=== PATIENT | male | born 1945 | race Caucasian/White ===

== ENCOUNTER 2020-06-19 12:04 | Observation (INO) | payer MEDICARE ==
[2020-06-19 12:38] LABS: Basophils % (A) 0 %; Eosinophils # (A) 0.2 k/uL (0-0.7); Eosinophils % (A) 2 %; HCT 49.2 % (39.0-53.0); HGB 16.4 gm/dL (13.0-17.5); Lymphocytes # (A) 3.1 k/uL (1.0-4.8); Lymphocytes % (A) 32 %; MCH 30.6 pg (25.0-35.0); MCHC 33.4 g/dL (31.0-37.0); MCV 91.6 fL (80.0-100.0); Monocytes # (A) 0.4 k/uL (0-1.0); Monocytes % (A) 4 %; Neutrophils # (A) 5.7 k/uL (1.3-7.7); Neutrophils % (A) 60 %; Platelet Count 183 k/uL (150-450); RBC 5.37 m/uL (4.30-5.90); RDW 13.1 % (11.5-15.5); WBC 9.6 k/uL (3.8-10.6)
--- NOTE | 2020-06-19 12:46 | XR ---
EXAMINATION TYPE: XR chest 2V DATE OF EXAM: 06/19/2020 COMPARISON: NONE HISTORY: Chest pain. TECHNIQUE: Frontal and lateral views of the chest are obtained. FINDINGS: There is no focal air space opacity, pleural effusion, or pneumothorax seen. The cardiac silhouette size is within normal limits. The osseous structures are intact. IMPRESSION: No acute cardiopulmonary process.
[2020-06-19 12:47] LABS: Albumin 4.1 g/dL (3.5-5.0); Calcium 9.6 mg/dL (8.4-10.2); Potassium 4.5 mmol/L (3.5-5.1); Total Protein 7.1 g/dL (6.3-8.2)
[2020-06-19 12:52] LABS: D-Dimer 0.27 mg/L FEU (<0.60); Partial Thromboplastin Time 23.7 sec (22.0-30.0); Prothrombin Time 9.9 sec (9.0-12.0)
--- NOTE | 2020-06-19 13:50 | ED ---
Chest Pain HPI - General Chief Complaint: Chest Pain Stated Complaint: chest pain Time Seen by Provider: 06/19/20 12:18 Source: patient, RN notes reviewed Mode of arrival: wheelchair Limitations: no limitations - History of Present Illness Initial Comments: This is a 74-year-old male who presents with complaints of chest pain when after past couple days. Midsternal unrelenting he states it happened reason spicy food. He currently states she's feeling well at rest no cough fevers chills nausea vomiting or other symptoms. States it was moderate in severity. MD Complaint: chest pain - Related Data Allergies Allergy/AdvReac Type Severity Reaction Status Date / Time No Known Allergies Allergy Verified 06/19/20 14:46 Review of Systems ROS Statement: Those systems with pertinent positive or pertinent negative responses have been documented in the HPI. ROS Other: All systems not noted in ROS Statement are negative. EKG Findings - EKG Results: EKG: interpreted by LYNNE, sinus rhythm (Sinus rhythm a 63. We'll 144 QRS duration 92 QT since QTC 370/378 that exodeviation no acute ST-T wave changes) Past Medical History Past Medical History: Coronary Artery Disease (CAD), Hyperlipidemia, Hypertension History of Any Multi-Drug Resistant Organisms: None Reported Past Surgical History: Heart Catheterization With Stent Past Psychological History: No Psychological Hx Reported Smoking Status: Former smoker Past Alcohol Use History: None Reported Past Drug Use History: None Reported General Exam - General Exam Comments Initial Comments: This is a well-developed well-nourished awake alert oriented times 3 male Limitations: no limitations General appearance: alert, in no apparent distress Head exam: Present: atraumatic, normocephalic, normal inspection Eye exam: Present: normal appearance, PERRL, EOMI. Absent: scleral icterus, conjunctival injection, periorbital swelling ENT exam: Present: normal exam, mucous membranes moist Neck exam: Present: normal inspection, full ROM, other (No stridor JVD or bruits). Absent: tenderness, meningismus, lymphadenopathy Respiratory exam: Present: normal lung sounds bilaterally. Absent: respiratory distress, wheezes, rales, rhonchi, stridor Cardiovascular Exam: Present: regular rate, normal rhythm, normal heart sounds. Absent: systolic murmur, diastolic murmur, rubs, gallop, clicks GI/Abdominal exam: Present: soft, normal bowel sounds. Absent: distended, tenderness, guarding, rebound, rigid, bruit, pulsatile mass Extremities exam: Present: normal inspection, full ROM, normal capillary refill. Absent: tenderness, pedal edema, joint swelling, calf tenderness Back exam: Present: normal inspection Neurological exam: Present: alert, oriented X3, CN II-XII intact Psychiatric exam: Present: normal affect, normal mood Skin exam: Present: warm, dry, intact, normal color. Absent: rash Course Vital Signs 06/19/20 06/19/20 12:08 13:43 Temperature 98.1 F 97.9 F Pulse Rate 65 57 L Respiratory 16 14 Rate Blood Pressure 160/83 144/89 O2 Sat by Pulse 100 100 Oximetry Chest Pain MDM - MDM Imaging reviewed no acute findings patient's had no further chest pain however he does describe exertional chest pain suspicious for angina. Patient will be admitted case is discussed with the patient's family as well as with Dr. Garza Critical Care Time Critical Care Time: Yes Total Critical Care Time: 31 Critical Care Time: 31 minutes of critical care time which includes initial presentation with history physical labs x-rays multiple reevaluation the patient discussed with patient family regarding findings admission orders and documentation of the above Disposition Clinical Impression: Chest pain, Unstable angina pectoris Disposition: ADMITTED IP TO THIS HOSP Condition: Fair Is patient prescribed a controlled substance at d/c from ED?: No Referrals: Ericka Pedroza MD [Primary Care Provider] - 1-2 days
[2020-06-19] MEDS ORDERED: HEPARIN SODIUM,PORCINE 5,000 UNIT/ML 1 ML VIAL IV ONE (14:51)
[2020-06-19] MEDS ORDERED: NITROGLYCERIN SL TABS 0.4 MG TAB SUBLINGUAL PRN (14:51)
[2020-06-19] MEDS ORDERED: HEPARIN SOD,PORK IN 0.45% NACL 25,000 UNIT in 0.45% NACL 1 250ML.BAG IV SCH (15:00)
--- NOTE | 2020-06-19 16:16 | P.HPIM ---
History of Present Illness H&P Date: 06/19/20 Chief Complaint: chest pain Patient is a 74-year-old male for history of coronary artery disease, hypertension, and dyslipidemia who presented to the emergency department with complaints of chest pain. On arrival to the ER he was slightly hypertensive with a blood pressure 160/83. Laboratory analysis was essentially unremarkable. Initial troponin was negative at 0.012. Chest x-ray shows no acute process. EKG demonstrated normal sinus rhythm at a rate of 63 with some baseline wandering throughout but no significant ST-T wave changes. Patient has delayed R-wave progression. He was placed in observation for chest pain. Patient seen and examined at bedside. Chest pain X 2 days. He initially thought it was something he ate but when it didn't go away he became more worried. The pain initially was in both the chest and abdomen. Now pain feels like someone is squeezing his heart. Constant pain over the last 2 days. Has lessened since presenting to the emergency department and laying still. No change in the pain with exertion. He reports shortness of breath which sounds chronic, no n/v, no numbness or tingling, no significant lightheadness or dizziness, no palpitations. 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 Last stent 2017 No hx of MD No longer on Plavix Review of Systems Pertinent positives and negatives as discussed in HPI, a complete review of systems was performed and all other systems are negative. Past Medical History Past Medical History: Coronary Artery Disease (CAD), Hyperlipidemia, Hypertension History of Any Multi-Drug Resistant Organisms: None Reported Past Surgical History: Heart Catheterization With Stent Date of Last Stent Placement:: 2017 Past Psychological History: No Psychological Hx Reported Smoking Status: Former smoker Past Alcohol Use History: None Reported Past Drug Use History: None Reported Additional History: No cane or walker - Past Family History Mother Family Medical History: Myocardial Infarction (MD) Medications and Allergies Home Medications Medication Instructions Recorded Confirmed Type Aspirin [Adult Low Dose Aspirin EC] 81 mg PO DAILY 06/19/20 06/19/20 History Atorvastatin [Lipitor] 80 mg PO DAILY 06/19/20 06/19/20 History Metoprolol Succinate (ER) [Toprol 100 mg PO DAILY 06/19/20 06/19/20 History XL] Omeprazole [PriLOSEC] 20 mg PO DAILY 06/19/20 06/19/20 History Allergies Allergy/AdvReac Type Severity Reaction Status Date / Time JOSE Inhibitors Allergy Swelling Verified 06/19/20 16:01 Physical Exam Osteopathic Statement: *. No significant issues noted on an osteopathic structural exam other than those noted in the History and Physical/Consult. Vitals: Vital Signs Temp Pulse Resp BP Pulse Ox 06/19/20 13:43 97.9 F 57 L 14 144/89 100 06/19/20 12:08 98.1 F 65 16 160/83 100 Intake and Output 06/19/20 06/19/20 06/19/20 06:59 14:59 22:59 Other: Weight 65.771 kg 65.771 kg General: non toxic, no distress, appears at stated age Derm: warm, dry Head: atraumatic, normocephalic, symmetric Eyes: EOMI, no lid lag, anicteric sclera, pupils equal round reactive to light ENT: Nose and ears atraumatic, no thrush, no pharyngeal erythema Neck: No thyromegaly, no cervical lymphadenopathy, trachea midline, supple Mouth: no lip lesion, mucus membranes moist Cardiovascular: S1S2 reg, no murmur, positive posterior tibial pulse bilateral, no edema, capillary refill less than 2 seconds, no reproducible chest pain Lungs: clear to ascultation bilateral, no ronchi, no rales, no wheeze, no accessory muscle use Abdominal: soft, nontender to palpation, no guarding, no appreciable organomegaly, normal bowel sounds Ext: no gross muscle atrophy, muscle strength muscle strength 5 out of 5 in all 4 extremities, no contractures Neuro: CN II-XI grossly intact, light touch intact all 4 extremities, finger to nose within normal limits, Psych: Alert, oriented, appropriate affect Results CBC & Chem 7: 06/19/20 12:31 06/19/20 12:31 Labs: Abnormal Lab Results - Last 24 Hours (Table) 06/19/20 Range/Units 12:31 Chloride 108 H (98-107) mmol/L Glucose 110 H (74-99) mg/dL Chest x-ray: report reviewed Thrombosis Risk Factor Assmnt - DVT/VTE Prophylaxis DVT/VTE Prophylaxis: Low risk, early ambulation encouraged - Choose All That Apply Any of the Below Risk Factors Present?: No Other Risk Factors: Yes Each Risk Factor Represents 2 Points: Age 61-74 years Thrombosis Risk Factor Assessment Total Risk Factor Score: 2 Thrombosis Risk Factor Assessment Level: Low Risk Assessment and Plan Assessment: Chest pain with history of coronary artery disease - heparing gtt, BB, and ASA for unstbale angina - trend troponin - cardio consult - EKG if recurrent chest pain HTN - metoprolol - follow BP HLD - check lipid profile - statin The patient is placed in observation with an anticipated less than 2 midnight stay for evaluation of []. Surrogate decision-maker: DVT prophylaxis: on heparin gtt Anticipated discharge date: in AM Anticipated discharge place: home A total of 35 minutes was spent on the care of this complex patient more than 50% of the time was spent in counseling and care coordination.
[2020-06-20 05:23] LABS: HCT 41.7 % (39.0-53.0); HGB 14.1 gm/dL (13.0-17.5); MCH 32.1 pg (25.0-35.0); MCHC 33.9 g/dL (31.0-37.0); MCV 94.7 fL (80.0-100.0); Mean Platelet Volume 7.4; Platelet Count 152 k/uL (150-450); RDW 12.7 % (11.5-15.5); WBC 8.3 k/uL (3.8-10.6)
[2020-06-20 05:35] LABS: Cholesterol 80 mg/dL (<200); HDL Cholesterol 36 mg/dL (40-60); LDL Cholesterol,Calculated 31 mg/dL (0-99); Triglycerides 64 mg/dL (<150)
[2020-06-20] MEDS ORDERED: PANTOPRAZOLE 40 MG TABLET PO SCH (07:30)
[2020-06-20 08:12] VITALS: BP 146/84; PULSE 64; RESP 16; TEMP 97.7
[2020-06-20] MEDS ORDERED: ASPIRIN 81 MG PO SCH (09:00)
[2020-06-20] MEDS ORDERED: NON FORMULARY DRUG (Aspirin [Adult Low Dose Aspirin Ec] 81 MG Tablet.Dr) PO SCH (09:00)
[2020-06-20] MEDS ORDERED: ATORVASTATIN 80 MG TAB PO SCH (09:00)
[2020-06-20] MEDS ORDERED: METOPROLOL SUCCINATE (ER) 100 MG TAB.ER.24H PO SCH (09:00)
[2020-06-20] MEDS ORDERED: ASPIRIN 325 MG TAB PO SCH (09:00)
--- NOTE | 2020-06-20 09:57 | P.CRDCN ---
History of Present Illness Consult date: 06/20/20 Consult reason: chest pain Chief complaint: Chest pain History of present illness: This is a pleasant 74-year-old gentleman with documented history of coronary artery disease. He states he underwent angioplasty with 2 stent placements approximately 3 years ago. This was performed by Dr. 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 He also has a history of hypertension, hyperlipidemia. He presents to the hospital on this admission with symptoms of abdominal discomfort that seemed to radiate up into the lungs and chest area. Symptoms started Saturday after the patient states he ate some spicy sausage. Since Saturday the symptoms have been somewhat constant, although have waxed and waned a little bit. The discomfort in the chest that he is experiencing he states only comes on when he takes a deep breath. Patient's home medications included Prilosec, metoprolol 100 mg daily, Lipitor 80 mg daily and a baby aspirin daily. His chest x-ray on presentation here did not show any acute process. Initial EKG shows normal sinus rhythm with nonspecific ST-T wave changes, subsequent EKG shows normal sinus rhythm with lateral T-wave inversion. Blood pressure 126/70 with a heart rate in the 60s respirations 18 afebrile, 98% on room air. White blood cell count 8.3, hemoglobin 14.1, platelet count 152. D-dimer 0.27 sodium 142, potassium 4.5, BUN 18, creatinine 1.0. Magnesium 2.0 troponins 0.0123 cholesterol ADA triglycerides 64 LDL 31 and HDL 36. At the time of my examination this morning, the patient is currently chest pain- free unless he takes a deep breath, then he is able to bring on the chest discomfort. Past Medical History Past Medical History: Coronary Artery Disease (CAD), Hyperlipidemia, Hypertension History of Any Multi-Drug Resistant Organisms: None Reported Past Surgical History: Heart Catheterization With Stent Date of Last Stent Placement:: 2017 Past Psychological History: No Psychological Hx Reported Smoking Status: Former smoker Past Alcohol Use History: None Reported Past Drug Use History: None Reported - Past Family History Mother Family Medical History: Myocardial Infarction (MO) Medications and Allergies Home Medications Medication Instructions Recorded Confirmed Type Aspirin [Adult Low Dose Aspirin EC] 81 mg PO DAILY 06/19/20 06/19/20 History Atorvastatin [Lipitor] 80 mg PO DAILY 06/19/20 06/19/20 History Metoprolol Succinate (ER) [Toprol 100 mg PO DAILY 06/19/20 06/19/20 History XL] Omeprazole [PriLOSEC] 20 mg PO DAILY 06/19/20 06/19/20 History Allergies Allergy/AdvReac Type Severity Reaction Status Date / Time JOSE Inhibitors Allergy Swelling Verified 06/19/20 16:01 Physical Exam Vitals: Vital Signs Temp Pulse Pulse Resp BP BP Pulse Ox 06/20/20 08:11 97.7 F 64 16 146/84 98 06/20/20 03:45 97.6 F 60 18 126/70 98 06/20/20 03:00 60 18 06/19/20 20:18 75 18 06/19/20 20:13 98.0 F 75 18 165/82 96 06/19/20 16:55 57 L 145/80 06/19/20 15:58 98.1 F 70 20 177/64 96 06/19/20 15:37 99 06/19/20 13:43 97.9 F 57 L 14 144/89 100 06/19/20 12:08 98.1 F 65 16 160/83 100 Intake and Output 06/19/20 06/20/20 06/20/20 22:59 06:59 14:59 Intake Total 56.83 Balance 56.83 Intake: Intake, IV Titration 56.83 Amount Heparin Sod,Pork in 0.45% 56.83 NaCl 25,000 unit In 0.45 % NaCl 1 250ml.bag @ 12 UNITS/KG/HR 7.893 mls/hr IV .Q24H [facility] Rx#: [id number] Other: Voiding Method Toilet Toilet Toilet # Voids 2 1 # Bowel Movements 1 Weight 65.771 kg PHYSICAL EXAMINATION: GENERAL: 74-year-old gentleman in no acute distress at the time of my examination HEENT: Head is atraumatic, normocephalic. Pupils equal, round. Sclera anicteric. Conjunctiva are clear. Mucous membranes of the mouth are moist. Neck is supple. There is no elevated jugular venous pressure. No carotid bruit is heard. HEART EXAMINATION: Heart S1, S2 normal. No murmur or gallop heard. CHEST EXAMINATION: Lungs are clear to auscultation and precussion. No chest wall tenderness is noted on palpation or with deep breathing. ABDOMEN: Soft, nontender. Bowel sounds are heard. No organomegaly noted. EXTREMITIES: 2+ peripheral pulses with no evidence of peripheral edema and no calf tenderness noted. NEUROLOGIC patient is awake, alert and oriented 3 . Results 06/20/20 04:44 06/19/20 12:31 Cardiac Enzymes 06/19/20 06/19/20 06/19/20 Range/Units 12:31 12:31 15:44 AST 29 (17-59) U/L Troponin I <0.012 <0.012 (0.000-0.034) ng/mL 06/19/20 Range/Units 18:21 AST (17-59) U/L Troponin I <0.012 (0.000-0.034) ng/mL Coagulation 06/19/20 06/19/20 06/20/20 Range/Units 12:31 20:40 04:44 PT 9.9 (9.0-12.0) sec APTT 23.7 86.4 H 56.0 H (22.0-30.0) sec Lipids 06/20/20 Range/Units 04:44 Triglycerides 64 (<150) mg/dL Cholesterol 80 (<200) mg/dL HDL Cholesterol 36 L (40-60) mg/dL CBC 06/19/20 06/20/20 Range/Units 12:31 04:44 WBC 9.6 8.3 (3.8-10.6) k/uL RBC 5.37 4.40 (4.30-5.90) m/uL Hgb 16.4 14.1 (13.0-17.5) gm/dL Hct 49.2 41.7 (39.0-53.0) % Plt Count 183 152 (150-450) k/uL Comprehensive Metabolic Panel 06/19/20 Range/Units 12:31 Sodium 142 (137-145) mmol/L Potassium 4.5 (3.5-5.1) mmol/L Chloride 108 H (98-107) mmol/L Carbon Dioxide 27 (22-30) mmol/L BUN 18 (9-20) mg/dL Creatinine 1.07 (0.66-1.25) mg/dL Glucose 110 H (74-99) mg/dL Calcium 9.6 (8.4-10.2) mg/dL AST 29 (17-59) U/L ALT 28 (4-49) U/L Alkaline Phosphatase 117 (38-126) U/L Total Protein 7.1 (6.3-8.2) g/dL Albumin 4.1 (3.5-5.0) g/dL Current Medications Generic Name Dose Route Start Last Admin Trade Name Freq PRN Reason Stop Dose Admin Aspirin 81 mg 06/20/20 09:00 06/20/20 09:06 Aspirin 81 Mg PO 81 mg DAILY BERNADETTE Administration Atorvastatin Calcium 80 mg 06/20/20 09:00 06/20/20 09:05 Atorvastatin 80 Mg Tab PO 80 mg DAILY BERNADETTE Administration Metoprolol Succinate 100 mg 06/20/20 09:00 Metoprolol Succinate (Er) 100 Mg Tab.Er.24h PO DAILY [facility] Nitroglycerin 0.4 mg 06/19/20 14:51 Nitroglycerin Sl Tabs 0.4 Mg Tab SUBLINGUAL Q5M PRN Chest Pain Pantoprazole Sodium 40 mg 06/20/20 07:30 06/20/20 06:31 Pantoprazole 40 Mg Tablet PO 40 mg [id number] [facility] Administration Intake and Output 06/19/20 06/20/20 06/20/20 22:59 06:59 14:59 Intake Total 56.83 Balance 56.83 Intake: Intake, IV Titration 56.83 Amount Heparin Sod,Pork in 0.45% 56.83 NaCl 25,000 unit In 0.45 % NaCl 1 250ml.bag @ 12 UNITS/KG/HR 7.893 mls/hr IV .Q24H [facility] Rx#: [id number] Other: Voiding Method Toilet Toilet Toilet # Voids 2 1 # Bowel Movements 1 Weight 65.771 kg 06/20/20 04:44 06/19/20 12:31 EKG Interpretations (text) EKG shows normal sinus rhythm with nonspecific ST-T wave changes Assessment and Plan Plan: Assessment and plan #1 chest pain, atypical for acute coronary syndrome. Troponins negative 3. EKG shows a normal sinus rhythm with nonspecific ST-T wave change #2 history of coronary artery disease with prior angioplasty and stent 2, 3 years ago #3 hypertension #4 hyperlipidemia Plan We will decrease the aspirin 81 mg daily, discontinue IV heparin. We will obtain an echocardiogram with Doppler study. We will also schedule the patient undergo stress Cardiolite today. Based on the findings of these tests further recommendations will be made. DNP note has been reviewed, I agree with a documented findings and plan of care. Patient was seen and examined.
--- NOTE | 2020-06-20 11:48 | EST ---
EXERCISE STRESS AGE: 74 SEX: M HT: 67 WT: 145 PROTOCOL: Cardiolite Alec Stress Test STAGE: 2 DURATION OF EXERCISE: 5:00 HEART RATE REST: 103 BLOOD PRESSURE REST: 139/78 MAXIMUM HEART RATE ACHIEVED: 144 MAXIMUM BLOOD PRESSURE: 194/69 85% MPHR: 122 100% MPHR: 144 METS: 7.0 INDICATIONS: Chest pain. CLINICAL INFORMATION: Baseline rhythm is sinus mechanism, rate of 103, left axis deviation, poor R-wave progression. Baseline blood pressure 139/78 mmHg. Patient exercised on Alec protocol for 5 minutes reaching peak rate of 144 beats per minute which is equal to 100% maximum predicted heart rate. Peak blood pressure 194/69 mmHg. Test was terminated due to fatigue. There was no chest pain. Electrocardiograph monitoring revealed 0.5 mm of steep upsloping ST-segment depression that improved in recovery. Cardiolite was injected at peak exercise. CONCLUSION: 1. Average exercise tolerance with borderline positive electrocardiograph stress testing. 2. Nuclear images will be reported separately. MMODL / IJN: [id number] /
--- NOTE | 2020-06-20 11:57 | NM ---
EXAMINATION TYPE: NM stress cardiolite complete DATE OF EXAM: 06/20/2020 COMPARISON: NONE HISTORY: Chest pain TECHNIQUE: After the intravenous administration of 9.87 mCi Tc 99m Sestamibi - Rest images obtained 45 minutes post injection. The patient exercised using a ZAC protocol and 1 minute prior to peak exercise was injected with 26.6 mCi Tc 99m Sestamibi - Stress images obtained 10 minutes post injecti on. FINDINGS: Targeted heart rate was achieved during performance of the study. Review of stress and rest SPECT christa ges demonstrates perfusion defect on both stress and rest images of the inferior wall. No distinct re versible perfusion abnormality. Gated analysis shows normal wall motion with an estimated left ventr icular ejection fraction of 72 %. TID 0.67 IMPRESSION: 1. No scintigraphic evidence for reversible ischemia. 2. Attenuation artifact of the inferior wall. 3. Ejection fraction 72%.
--- NOTE | 2020-06-20 17:35 | P.DS ---
Providers Date of admission: 06/19/20 14:51 Expected date of discharge: 06/20/20 Attending physician: Gracie Orozco DO Consults: 06/19/20 14:51 Consult Physician Urgent Consulting Provider: Nikita Baron Consult Reason/Comments: Chest pain Do you want consulting provider notified?: Yes Primary care physician: Ericka Pedroza Hospital Course: Discharge Diagnosis: Noncardiac chest pain, probable costochondritis Hx of CAD Hypertension Dyslipidemia Hospital Course: Patient is a 74-year-old male for history of coronary artery disease, hypertension, and dyslipidemia who presented to the emergency department with complaints of chest pain. On arrival to the ER he was slightly hypertensive with a blood pressure 160/83. Laboratory analysis was essentially unremarkable. Initial troponin was negative at 0.012. Chest x-ray shows no acute process. EKG demonstrated normal sinus rhythm at a rate of 63 with some baseline wandering throughout but no significant ST-T wave changes. Patient has delayed R-wave progression. He was placed in observation for chest pain. He was seen by cardiology. His troponins remained negative. He underwent an Cardiolite stress test which not any evidence of reversible ischemia and did demonstrate a preserved ejection fraction. He is determined stable for discharge home. It was felt that his chest pain was likely secondary to costochondritis as he had recently weaned with a large portion of his lawn. He will follow-up with his primary care physician Dr. 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 Patient seen and examined at bedside. Chest pain resolved, no dyspnea, no nausea, vomiting. Vital signs reviewed and stable. General: non toxic, no distress, appears at stated age Derm: warm, dry Head: atraumatic, normocephalic, symmetric Eyes: EOMI, no lid lag, anicteric sclera Mouth: no lip lesion, mucus membranes moist Cardiovascular: S1S2 reg, no murmur, positive posterior tibial pulse bilateral, Lungs: CTA bilateral, no rhonchi, no rales , no accessory muscle use Abdominal: soft, nontender to palpation, no guarding, no appreciable organomegaly Ext: no gross muscle atrophy, no edema, no contractures Neuro: CN II-XI grossly intact, no focal neuro deficits Psych: Alert, oriented, appropriate affect A total of 25 minutes of time were spent preparing this complex discharge summary . Patient Condition at Discharge: Stable Plan - Discharge Summary Discharge Rx Participant: No New Discharge Prescriptions: Continue Omeprazole [PriLOSEC] 20 mg PO DAILY Metoprolol Succinate (ER) [Toprol XL] 100 mg PO DAILY Atorvastatin [Lipitor] 80 mg PO DAILY Aspirin [Adult Low Dose Aspirin EC] 81 mg PO DAILY Discharge Medication List Aspirin [Adult Low Dose Aspirin EC] 81 mg PO DAILY 06/19/20 [History] Atorvastatin [Lipitor] 80 mg PO DAILY 06/19/20 [History] Metoprolol Succinate (ER) [Toprol XL] 100 mg PO DAILY 06/19/20 [History] Omeprazole [PriLOSEC] 20 mg PO DAILY 06/19/20 [History] Follow up Appointment(s)/Referral(s): Mable Pisnao MD [REFERRING] - 06/28/20 1:00 pm Ericka Pedroza MD [Primary Care Provider] - 06/27/20 1:20 pm (Please arrive at 1:00 pm. ) Patient Instructions/Handouts: Chest Pain (DC) Activity/Diet/Wound Care/Special Instructions: Activity: as tolerated Diet: Heart Healthy Special Instructions: Keep all follow-up appointments Return with recurrent severe chest pain Discharge Disposition: HOME SELF-CARE
--- NOTE | 2020-06-21 09:56 | ECHOF ---
Referral Reason:chest pain MEASUREMENTS -------- HEIGHT: 170.2 cm WEIGHT: 65.8 kg BP: 146/84 RVIDd: 2.8 cm (< 3.3) IVSd: 1.2 cm (0.6 - 1.1) LVIDd: 3.6 cm (3.9 - 5.3) LVPWd: 1.1 cm (0.6 - 1.1) IVSs: 1.4 cm LVIDs: 2.3 cm LVPWs: 1.4 cm LA Diam: 2.7 cm (2.7 - 3.8) LAESV Index (A-L): 16.14 ml/m Ao Diam: 3.0 cm (2.0 - 3.7) AV Cusp: 1.9 cm (1.5 - 2.6) MV EXCURSION: 12.495 mm (> 18.000) MV EF SLOPE: 46 mm/s (70 - 150) EPSS: 0.5 cm MV E Tunde: 0.67 m/s MV DecT: 240 ms MV A Tunde: 1.00 m/s MV E/A Ratio: 0.67 AR PHT: 600 ms RAP: 5.00 mmHg RVSP: 17.74 mmHg FINDINGS -------- Sinus rhythm. This was a technically adequate study. The left ventricular size is normal. There is borderline concentric left ventricular hypertrophy. Overall left ventricular systolic function is normal with, an EF between 55 - 60 %. The right ventricle is normal in size. Normal LA size by volume 22+/-6 ml/m2. The right atrial size is normal. Interatrial and interventricular septum intact. There is mild aortic valve sclerosis. There is mild aortic regurgitation. Mild mitral annular calcification present. Mild mitral regurgitation is present. The tricuspid valve appears structurally normal. Mild tricuspid regurgitation present. Right vent ricular systolic pressure is normal at < 35 mmHg. Trace/mild (physiologic) pulmonic regurgitation. The aortic root size is normal. Normal inferior vena cava with normal inspiratory collapse consistent with estimated right atrial pre ssure of 5 mmHg. There is no pericardial effusion. CONCLUSIONS -------- 1. There is borderline concentric left ventricular hypertrophy. 2. Overall left ventricular systolic function is normal with, an EF between 55 - 60 %. 3. Normal LA size by volume 22+/-6 ml/m2. 4. There is mild aortic valve sclerosis. 5. There is mild aortic regurgitation. 6. Mild mitral regurgitation is present. 7. Mild tricuspid regurgitation present. 8. Trace/mild (physiologic) pulmonic regurgitation. 9. There is no pericardial effusion. [employer]PER [employer]OTATION OPERATOR: Carolyn Rubi RDCS
== END 2020-06-20 14:15 | disposition home or self-care (01) ==
LOC: EC 12:04 → 3NCARDOBS 14:51
PROVIDERS: ADMIT Internal Medicine; ATTEND Internal Medicine
DX: R07.89 Other chest pain (principal); R06.02 Shortness of breath; I25.10 Atherosclerotic heart disease of native coronary artery without angina pectoris; E78.5 Hyperlipidemia, unspecified; I10 Essential (primary) hypertension; Z87.891 Personal history of nicotine dependence; Z95.5 Presence of coronary angioplasty implant and graft; Z79.82 Long term (current) use of aspirin; Z88.8 Allergy status to other drugs, medicaments and biological substances; Z79.899 Other long term (current) drug therapy; Z82.49 Family history of ischemic heart disease and other diseases of the circulatory system
CPT/HCPCS: 93005 ×2; 96365; 96366; 96376; 99291; 36415; 93017; 93306; 85379; 83880; 80061; 80053; 82550; 83690; 83735; 84484; 85025; 85027; 85610; 85730 ×2; 71046; 78452; G0378 ×2; A9500; J1644 ×2

== ENCOUNTER 2024-12-18 08:06 | Observation (INO) | payer MEDICARE ==
--- NOTE | 2024-12-18 08:26 | ED ---
General Adult HPI - General Chief complaint: Chest Pain Stated complaint: chest pain Time Seen by Provider: 12/18/24 08:14 Source: patient, RN notes reviewed, old records reviewed Mode of arrival: ambulatory Limitations: no limitations - History of Present Illness Initial comments: 79-year-old male presenting with chest pain which began this morning. Patient has prior history of CAD status post stenting several years prior. No vomiting or diaphoresis. Does report moderate dyspnea associated with pain. Pain is a squeezing sensation but is also worse with deep inspiration. No fever. No lower extremity pain or swelling. - Related Data Home Medications Medication Instructions Recorded Confirmed Aspirin [Adult Low Dose Aspirin EC] 81 mg PO DAILY 06/19/20 12/18/24 Atorvastatin [Lipitor] 80 mg PO DAILY 06/19/20 12/18/24 Metoprolol Succinate (ER) [Toprol 100 mg PO DAILY 06/19/20 12/18/24 XL] Omeprazole 20 mg PO DAILY 12/18/24 12/18/24 Allergies Allergy/AdvReac Type Severity Reaction Status Date / Time JOSE Inhibitors Allergy Swelling Verified 12/18/24 10:22 face & hands & Anaphylaxis Review of Systems ROS Statement: Those systems with pertinent positive or pertinent negative responses have been documented in the HPI. ROS Other: All systems not noted in ROS Statement are negative. Past Medical History Past Medical History: Coronary Artery Disease (CAD), Hyperlipidemia, Hypertension History of Any Multi-Drug Resistant Organisms: None Reported Past Surgical History: Heart Catheterization With Stent Date of Last Stent Placement:: 2017 Past Psychological History: No Psychological Hx Reported Smoking Status: Former smoker Past Alcohol Use History: None Reported Past Drug Use History: None Reported - Past Family History Mother Family Medical History: Myocardial Infarction ([place]) General Exam Limitations: no limitations General appearance: alert, in no apparent distress Head exam: Present: atraumatic, normocephalic Eye exam: Present: normal appearance, PERRL ENT exam: Present: normal exam Neck exam: Present: normal inspection. Absent: tenderness, meningismus Respiratory exam: Present: normal lung sounds bilaterally. Absent: respiratory distress, wheezes Cardiovascular Exam: Present: regular rate, normal rhythm GI/Abdominal exam: Present: soft. Absent: distended, tenderness Extremities exam: Present: normal inspection, normal capillary refill. Absent: pedal edema, calf tenderness Neurological exam: Present: alert, oriented X3, CN II-XII intact. Absent: motor sensory deficit Psychiatric exam: Present: normal affect, normal mood Skin exam: Present: warm, dry, intact Course Vital Signs 12/18/24 12/18/24 08:07 09:36 Temperature 97.7 F Pulse Rate 107 H 74 Respiratory 18 16 Rate Blood Pressure 169/97 166/100 O2 Sat by Pulse 95 98 Oximetry Medical Decision Making - Medical Decision Making Was pt. sent in by a medical professional or institution (, [facility], [facility], urgent care, hospital, or [facility]...) When possible be specific @ -No Did you speak to anyone other than the patient for history (EMS, parent, family, police, friend...)? What history was obtained from this source @ -No Did you review nursing and triage notes (agree or disagree)? Why? @ -I reviewed and agree with nursing and triage notes Were old charts reviewed (outside hosp., previous admission, EMS record, old EKG, old radiological studies, urgent care reports/EKG's, [facility] records)? Report findings @ -No old charts were reviewed Differential Diagnosis (chest pain, altered mental status, abdominal pain women, abdominal pain men, vaginal bleeding, weakness, fever, dyspnea, syncope, headache, dizziness, GI bleed, back pain, seizure, CVA, palpatations, mental health, musculoskeletal)? @ -Not applicable EKG interpreted by me (3pts min.). @ -Sinus rhythm left axis rate of 97, MS interval 149, QRS duration 88, QTc [address] segment elevation. X-rays interpreted by me (1pt min.). @ Chest x-ray negative for acute cardiopulmonary disease CT interpreted by me (1pt min.). @ -None done U/S interpreted by me (1pt. min.). @ -None done What testing was considered but not performed or refused? (CT, X-rays, U/S, labs)? Why? @ -None What meds were considered but not given or refused? Why? @ -None Did you discuss the management of the patient with other professionals (professionals i.e. [facility], [facility], lab, RT, psych nurse, director social service, financial project manager, teacher, executive vice president and chief financial officer, caseworker intake)? Give summary @ -No Was smoking cessation discussed for >3mins.? @ -No Was critical care preformed (if so, how long)? @ -No Were there social determinants of health that impacted care today? How? (Homelessness, low income, unemployed, alcoholism, drug addiction, transportation, low edu. Level, literacy, decrease access to med. care, custodial, rehab)? @ -No Was there de-escalation of care discussed even if they declined (Discuss DNR or withdrawal of care, Hospice)? DNR status @ -No What co-morbidities impacted this encounter? (DM, HTN, Smoking, COPD, CAD, Cancer, CVA, ARF, Chemo, Hep., AIDS, mental health diagnosis, sleep apnea, morbid obesity)? @ -CAD status post stenting Was patient admitted / discharged? Hospital course, mention meds given and route, prescriptions, significant lab abnormalities, going to OR and other pertinent info. @ -[79 yo presenting with substernal chest pain. Pain is a squeezing sensation, worse with deep inspiration. Vital signs are stable. EKG sinus rhythm without ST segment elevation. Chest x-ray clear. Normal CBC, normal CMP. Negative initial troponin, negative D-dimer for pulmonary embolism. Given the onset of symptoms and the patient's risk factors he will be observed for serial cardiac enzymes, telemetry, cardiology consultation. Case discussed with Lillian kwon for [facility] Undiagnosed new problem with uncertain prognosis? @ -No Drug Therapy requiring intensive monitoring for toxicity (Heparin, Nitro, Insulin, Cardizem)? @ -No Were any procedures done? @ -No Diagnosis/symptom? @Chest pain rule out Acute, or Chronic, or Acute on Chronic? @Acute Uncomplicated (without systemic symptoms) or Complicated (systemic symptoms)? @ -Default Side effects of treatment? @ -No Exacerbation, Progression, or Severe Exacerbation? @ -No Poses a threat to life or bodily function? How? (Chest pain, [place], [place], pneumonia, PE, COPD, DKA, ARF, appy, cholecystitis, CVA, Diverticulitis, Homicidal, Suicidal, threat to staff... and all critical care pts) @ -Yes, ACS - Lab Data Result diagrams: 12/18/24 08:21 12/18/24 08:21 Lab Results 12/18/24 12/18/24 12/18/24 Range/Units 08:21 08:21 08:21 WBC 8.67 (4.50-10.00) 10*3/uL RBC 4.88 (4.40-5.60) 10*6/uL Hgb 14.8 (13.0-17.0) g/dL Hct 43.8 (39.6-50.0) % MCV 89.8 (80.0-97.0) fL MCH 30.3 (27.0-32.0) pg MCHC 33.8 (32.0-37.0) g/dL Plt Count 186 (140-440) 10*3/uL MPV 9.1 L (9.5-12.2) fL Immature Gran % (Auto) 0.2 % Neutrophils % 56.4 % Lymphocytes % 32.9 % Monocytes % 7.7 % Eosinophils % 2.5 % Basophils % 0.3 % Immature Gran # 0.02 (0.00-0.04) 10*3/uL Neutrophils # 4.88 (1.80-7.70) 10*3/uL Lymphocytes # 2.85 (0.90-5.00) 10*3/uL Monocytes # 0.67 (0.20-1.00) 10*3/uL Eosinophils # 0.22 (0.04-0.35) 10*3/uL Basophils # 0.03 (0.00-0.10) 10*3/uL PT 10.9 (10.0-12.5) sec INR 1.0 (<1.2) APTT 23.7 (22.0-30.0) sec D-Dimer 0.37 (<0.60) mg/L FEU Sodium 138 (137-145) mmol/L Potassium 3.8 (3.5-5.1) mmol/L Chloride 102 (98-107) mmol/L Carbon Dioxide 28 (22-30) mmol/L Anion Gap 8 mmol/L BUN 9 (9-20) mg/dL Creatinine 0.94 (0.66-1.25) mg/dL Est GFR (CKD-EPI)AfAm 88 (>60 ml/min/1.73 sqM) Est GFR (CKD-EPI)NonAf 76 (>60 ml/min/1.73 sqM) Glucose 117 H (74-99) mg/dL Calcium 9.7 (8.4-10.2) mg/dL Magnesium 1.6 (1.6-2.3) mg/dL Total Bilirubin 1.1 (0.2-1.3) mg/dL AST 25 (17-59) U/L ALT 20 (4-49) U/L Alkaline Phosphatase 134 H (38-126) U/L Troponin I (0.000-0.034) ng/mL NT-Pro-B Natriuret Pep 157 pg/mL Total Protein 7.1 (6.3-8.2) g/dL Albumin 4.2 (3.5-5.0) g/dL 12/18/24 Range/Units 08:21 WBC (4.50-10.00) 10*3/uL RBC (4.40-5.60) 10*6/uL Hgb (13.0-17.0) g/dL Hct (39.6-50.0) % MCV (80.0-97.0) fL MCH (27.0-32.0) pg MCHC (32.0-37.0) g/dL Plt Count (140-440) 10*3/uL MPV (9.5-12.2) fL Immature Gran % (Auto) % Neutrophils % % Lymphocytes % % Monocytes % % Eosinophils % % Basophils % % Immature Gran # (0.00-0.04) 10*3/uL Neutrophils # (1.80-7.70) 10*3/uL Lymphocytes # (0.90-5.00) 10*3/uL Monocytes # (0.20-1.00) 10*3/uL Eosinophils # (0.04-0.35) 10*3/uL Basophils # (0.00-0.10) 10*3/uL PT (10.0-12.5) sec INR (<1.2) APTT (22.0-30.0) sec D-Dimer (<0.60) mg/L FEU Sodium (137-145) mmol/L Potassium (3.5-5.1) mmol/L Chloride (98-107) mmol/L Carbon Dioxide (22-30) mmol/L Anion Gap mmol/L BUN (9-20) mg/dL Creatinine (0.66-1.25) mg/dL Est GFR (CKD-EPI)AfAm (>60 ml/min/1.73 sqM) Est GFR (CKD-EPI)NonAf (>60 ml/min/1.73 sqM) Glucose (74-99) mg/dL Calcium (8.4-10.2) mg/dL Magnesium (1.6-2.3) mg/dL Total Bilirubin (0.2-1.3) mg/dL AST (17-59) U/L ALT (4-49) U/L Alkaline Phosphatase (38-126) U/L Troponin I <0.012 (0.000-0.034) ng/mL NT-Pro-B Natriuret Pep pg/mL Total Protein (6.3-8.2) g/dL Albumin (3.5-5.0) g/dL Disposition Clinical Impression: Chest pain Disposition: ADMITTED IP TO THIS HOSP Condition: Stable Is patient prescribed a controlled substance at d/c from ED?: No Referrals: Juan R Lambert MD [Primary Care Provider] - 1-2 days Time of Disposition: 10:30
[2024-12-18 08:45] LABS: Basophils # (A) 0.03 10*3/uL (0.00-0.10); Basophils % (A) 0.3 %; Eosinophils # (A) 0.22 10*3/uL (0.04-0.35); Eosinophils % (A) 2.5 %; HCT 43.8 % (39.6-50.0); HGB 14.8 g/dL (13.0-17.0); Lymphocytes # (A) 2.85 10*3/uL (0.90-5.00); Lymphocytes % (A) 32.9 %; MCH 30.3 pg (27.0-32.0); MCHC 33.8 g/dL (32.0-37.0); MCV 89.8 fL (80.0-97.0); Mean Platelet Volume 9.1 fL (9.5-12.2); Monocytes # (A) 0.67 10*3/uL (0.20-1.00); Monocytes % (A) 7.7 %; Neutrophils # (A) 4.88 10*3/uL (1.80-7.70); Neutrophils % (A) 56.4 %; Platelet Count 186 10*3/uL (140-440); RBC 4.88 10*6/uL (4.40-5.60); RDW 13.1 % (11.5-14.5); WBC 8.67 10*3/uL (4.50-10.00)
--- NOTE | 2024-12-18 08:53 | XR ---
EXAMINATION TYPE: XR chest 2V DATE OF EXAM: 12/18/2024 8:37 AM COMPARISON: 06/19/2020 CLINICAL INDICATION: Male, 79 years old with history of Chest Pain, TECHNIQUE: XR chest 2V view(s) obtained. FINDINGS: The heart size is normal. The pulmonary vasculature is normal. The lungs are clear. IMPRESSION: 1. No acute pulmonary process. [facility], , 12/18/2024 8:51 AM
[2024-12-18 09:17] LABS: ALT 20 U/L (4-49); AST 25 U/L (17-59); African American GFR (CKD) 88 (>60 ml/min/1.73 sqM); Albumin 4.2 g/dL (3.5-5.0); Alkaline Phosphatase 134 U/L (38-126); Anion Gap 8 mmol/L; Blood Urea Nitrogen 9 mg/dL (9-20); Calcium 9.7 mg/dL (8.4-10.2); Carbon Dioxide 28 mmol/L (22-30); Chloride 102 mmol/L (98-107); Glucose 117 mg/dL (74-99); Magnesium 1.6 mg/dL (1.6-2.3); Non-African American GFR(CKD) 76 (>60 ml/min/1.73 sqM); Potassium 3.8 mmol/L (3.5-5.1); Sodium 138 mmol/L (137-145); Total Bilirubin 1.1 mg/dL (0.2-1.3); Total Protein 7.1 g/dL (6.3-8.2)
[2024-12-18 09:18] LABS: Partial Thromboplastin Time 23.7 sec (22.0-30.0); Prothrombin Time 10.9 sec (10.0-12.5)
[2024-12-18 09:26] LABS: NT-Pro-B-Type Natriuretic Pept 157 pg/mL
[2024-12-18] MEDS ORDERED: NALOXONE 0.4 MG/ML 1 ML VIAL IV PRN (10:25)
[2024-12-18] MEDS ORDERED: ACETAMINOPHEN TAB 325 MG TAB PO PRN (10:25)
[2024-12-18] MEDS: ASPIRIN 325 MG TAB PO STA (10:31)
[2024-12-18] MEDS: ASPIRIN 81 MG PO STA (10:33)
[2024-12-18] MEDS: amLODIPine 10 MG TAB PO SCH (21:46)
[2024-12-19 07:30] VITALS: RESP 16
[2024-12-19] MEDS: ATORVASTATIN 80 MG TAB PO SCH (08:16)
[2024-12-19] MEDS: METOPROLOL SUCCINATE (ER) 100 MG TAB.ER.24H PO SCH (08:16)
[2024-12-19] MEDS: ASPIRIN 81 MG PO SCH (08:16)
[2024-12-19] MEDS: PANTOPRAZOLE 40 MG TABLET PO SCH (08:16)
--- NOTE | 2024-12-19 12:11 | P.HPIM ---
History of Present Illness Patient 79-year-old male came to complaints of chest pain which was about 7-8/10 in severity nonradiating on the right side of the chest, increases with deep breathing no nausea vomiting diarrhea diaphoresis chest pain is squeezing type of sensation EKG did not show any acute ST-T wave changes chest x-ray is within normal limits D-dimer is negative, troponins are negative. Patient had a history of coronary disease with stents in the past. REVIEW OF SYSTEMS: All other systems are negative except those mentioned in the HPI PHYSICAL EXAMINATION: GENERAL: The patient is alert and oriented x3, not in any acute distress. Well developed, well nourished. HEENT: Pupils are round and equally reacting to light. EOMI. No scleral icterus. No conjunctival pallor. Normocephalic, atraumatic. No pharyngeal erythema. No thyromegaly. CARDIOVASCULAR: S1 and S2 present. No murmurs, rubs, or gallops. PULMONARY: Chest is clear to auscultation, no wheezing or crackles. ABDOMEN: Soft, nontender, nondistended, normoactive bowel sounds. No palpable organomegaly. MUSCULOSKELETAL: No joint swelling or deformity. EXTREMITIES: No cyanosis, clubbing, or pedal edema. NEUROLOGICAL: Gross neurological examination did not reveal any focal deficits. SKIN: No rashes. Assessment and plan -Chest pain musculoskeletal atypical rule out acute coronary syndromes, rule out pulmonary embolism. Cardiology will evaluate the patient if cleared by cardiology patient will be discharged today -Coronary disease history patient will be resumed on home medications - Hyperlipidemia - Hypertension For above-mentioned chronic medical problems patient will be resumed on appropriate home medications. If cleared by cardiology patient will be discharged today Past Medical History Past Medical History: Coronary Artery Disease (CAD), Hyperlipidemia, Hypertension History of Any Multi-Drug Resistant Organisms: None Reported Past Surgical History: Heart Catheterization With Stent Date of Last Stent Placement:: 2017 Past Psychological History: No Psychological Hx Reported Smoking Status: Former smoker Past Alcohol Use History: None Reported Past Drug Use History: None Reported - Past Family History Mother Family Medical History: Myocardial Infarction ([place]) Medications and Allergies Home Medications Medication Instructions Recorded Confirmed Type Aspirin [Adult Low Dose Aspirin EC] 81 mg PO DAILY 06/19/20 12/18/24 History Atorvastatin [Lipitor] 80 mg PO DAILY 06/19/20 12/18/24 History Metoprolol Succinate (ER) [Toprol 100 mg PO DAILY 06/19/20 12/18/24 History XL] Omeprazole 20 mg PO DAILY 12/18/24 12/18/24 History Allergies Allergy/AdvReac Type Severity Reaction Status Date / Time JOSE Inhibitors Allergy Swelling Verified 12/18/24 10:22 face & hands & Anaphylaxis Physical Exam Vitals: Vital Signs Temp Pulse Pulse Resp BP BP Pulse Ox 12/19/24 07:00 98.3 F 110 H 16 123/73 93 L 12/19/24 02:00 96 12/19/24 01:02 98.2 F 96 18 157/85 94 L 12/18/24 21:47 162/93 12/18/24 21:46 96 12/18/24 18:55 98.5 F 98 18 174/94 96 12/18/24 14:41 97.8 F 93 15 177/73 12/18/24 13:52 99.4 F 86 18 148/75 96 Intake and Output 12/18/24 12/19/24 12/19/24 22:59 06:59 14:59 Other: Voiding Method Toilet Toilet # Voids 2 3 Results CBC & Chem 7: 12/18/24 08:21 12/18/24 08:21 Thrombosis Risk Factor Assmnt - Choose All That Apply Each Risk Factor Represents 3 Points: Age 75 years or older Thrombosis Risk Factor Assessment Total Risk Factor Score: 3 Thrombosis Risk Factor Assessment Level: Moderate Risk
--- NOTE | 2024-12-19 12:12 | P.DS ---
Providers Date of admission: 12/18/24 10:26 Attending physician: Pedro Baird Consults: 12/18/24 10:25 Consult Physician Routine Consulting Provider: Filippo Santa Consult Reason/Comments: CP Do you want consulting provider notified?: Yes Primary care physician: Juan R Lambert MD Hospital Course: Patient 79-year-old male came to complaints of chest pain which was about 7-8/10 in severity nonradiating on the right side of the chest, increases with deep breathing no nausea vomiting diarrhea diaphoresis chest pain is squeezing type of sensation EKG did not show any acute ST-T wave changes chest x-ray is within normal limits D-dimer is negative, troponins are negative. Patient had a history of coronary disease with stents in the past. REVIEW OF SYSTEMS: All other systems are negative except those mentioned in the HPI PHYSICAL EXAMINATION: GENERAL: The patient is alert and oriented x3, not in any acute distress. Well developed, well nourished. HEENT: Pupils are round and equally reacting to light. EOMI. No scleral icterus. No conjunctival pallor. Normocephalic, atraumatic. No pharyngeal erythema. No thyromegaly. CARDIOVASCULAR: S1 and S2 present. No murmurs, rubs, or gallops. PULMONARY: Chest is clear to auscultation, no wheezing or crackles. ABDOMEN: Soft, nontender, nondistended, normoactive bowel sounds. No palpable organomegaly. MUSCULOSKELETAL: No joint swelling or deformity. EXTREMITIES: No cyanosis, clubbing, or pedal edema. NEUROLOGICAL: Gross neurological examination did not reveal any focal deficits. SKIN: No rashes. Assessment and plan -Chest pain musculoskeletal atypical rule out acute coronary syndromes, rule out pulmonary embolism. Cardiology will evaluate the patient if cleared by cardiology patient will be discharged today -Coronary disease history patient will be resumed on home medications - Hyperlipidemia - Hypertension For above-mentioned chronic medical problems patient will be resumed on appropriate home medications. If cleared by cardiology patient will be discharged today Patient Condition at Discharge: Stable Plan - Discharge Summary Discharge Rx Participant: No New Discharge Prescriptions: Continue Metoprolol Succinate (ER) [Toprol XL] 100 mg PO DAILY Atorvastatin [Lipitor] 80 mg PO DAILY Aspirin [Adult Low Dose Aspirin EC] 81 mg PO DAILY Omeprazole 20 mg PO DAILY Discharge Medication List Aspirin [Adult Low Dose Aspirin EC] 81 mg PO DAILY 06/19/20 [History] Atorvastatin [Lipitor] 80 mg PO DAILY 06/19/20 [History] Metoprolol Succinate (ER) [Toprol XL] 100 mg PO DAILY 06/19/20 [History] Omeprazole 20 mg PO DAILY 12/18/24 [History] Follow up Appointment(s)/Referral(s): Juan R Lambert MD [Primary Care Provider] - 3 Days
[2024-12-19 14:46] VITALS: BP 121/72; PULSE 80; TEMP 99.1
--- NOTE | 2024-12-19 14:58 | P.CRDCN ---
History of Present Illness Consult date: 12/19/24 Requesting physician: Pedro Baird Reason for Consult (text): chest pain Chief complaint: chest pain History of present illness: This is a pleasant 79-year-old male patient who follows with Dr. Uribe with past medical history of CAD status post stenting x 2 about 8 to 10 years ago, hypertension, hyperlipidemia. Presented to the hospital with complaints of chest discomfort. He was awoken from sleep yesterday with complaints of chest discomfort mostly on the right side. The pain was mostly with deep inspiration causing him to feel somewhat short of breath. He feels the pain was very diff erent compared to what he experienced prior to his stenting in the past. Although not as active through the winter months he feels he is reasonably active and looking forward to going [employer] [place] in 2 weeks. He underwent stress testing about a year ago he believes that was unremarkable and he is scheduled for follow-up with his fruit dumper soon. He has had no edema, orthopnea or PND. He has had no palpitations, dizziness or lightheadedness and no syncope. He has had no exertional chest discomfort. He denies any recent cold or flulike symptoms, denies a cough or chest congestion. Blood pressure was elevated on admission but he feels this is related to missing his home medication for 2 days due to a dentist appointment on the and coming to the emergency department yesterday morning before having a chance to take his pills. Blood pressure is usually reasonably well-controlled. Diagnostics -EKG: Sinus rhythm -Chest x-ray: No acute pulmonary process -Laboratory studies: White blood cell count 8.67, hemoglobin 14.8, D-dimer 0.37, sodium 138, potassium 3.8, BUN 9, creatinine 0.94, NT proBNP 157 and troponins negative x 3. -Home cardiac medications: Metoprolol succinate 100 mg p.o. daily, atorvastatin 80 mg p.o. daily, and aspirin 81 mg p.o. daily. -Prior stress test: About a year ago per patient was unremarkable -Echocardiogram: Most recent available June 2020 showed a normal LV systolic function -Cardiac catheterization: Report not available Review Of Systems: At the time of my exam: CONSTITUTIONAL: Denies fever or chills. HEENT: Denies blurred vision, vision changes. CARDIOVASCULAR: Complains of chest pain only with deep inspiration. Denies orthopnea. Denies PND. Denies palpitations, dizziness, or syncope. RESPIRATORY: Denies shortness of breath, wheezing, or cough. Denies hemoptysis. GASTROINTESTINAL: Denies abdominal pain. Denies nausea or vomiting. Denies bleeding. HEMATOLOGIC: Denies bleeding disorders. GENITOURINARY: Denies hematuria. SKIN: Denies puritis. Denies rash. PHYSICAL EXAMINATION: This is a 79-year-old male in no apparent distress at the time of my examination. VITAL SIGNS: Reviewed. HEENT: Head is atraumatic, normocephalic. Pupils are equal, round. Sclerae anicteric. Conjunctivae are clear. Mucous membranes of the mouth are moist. Neck is supple. There is no elevated jugular venous pressure. No carotid bruit is heard. CHEST EXAMINATION: Clear to auscultation bilaterally. No wheezes rales or rhonchi. Respirations even and nonlabored. HEART EXAMINATION: Heart regular, positive S1 and S2. No S3. No S4. Soft systolic murmur. ABDOMEN: Soft, nontender. Bowel sounds are heard. No organomegaly noted. EXTREMITIES: 2+ peripheral pulses with no evidence of peripheral edema and no calf tenderness noted. NEUROLOGIC EXAMINATION: Patient is awake, alert and oriented x3. Assessment: 1. Chest pain, acute coronary event ruled out, EKG and cardiac enzymes unremarkable, pain atypical with deep inspiration only 2. CAD with prior stenting 3. Hypertension 4. Hyperlipidemia Plan: From cardiology's perspective an acute coronary event has been ruled out. We will obtain a 2D echo with Doppler study to assess cardiac structure and function. If there are no significant abnormalities noted on echocardiogram patient may be discharged home and will follow-up with his primary fruit dumper soon as previously scheduled. Thank you kindly for this consultation. Nurse practitioner note has been reviewed, I agree with documented findings and plan of care. Patient was seen and examined. Past Medical History Past Medical History: Coronary Artery Disease (CAD), Hyperlipidemia, Hy pertension History of Any Multi-Drug Resistant Organisms: None Reported Past Surgical History: Heart Catheterization With Stent Date of Last Stent Placement:: 2017 Past Psychological History: No Psychological Hx Reported Smoking Status: Former smoker Past Alcohol Use History: None Reported Past Drug Use History: None Reported - Past Family History Mother Family Medical History: Myocardial Infarction (OK) Medications and Allergies Home Medications Medication Instructions Recorded Confirmed Type Aspirin [Adult Low Dose Aspirin EC] 81 mg PO DAILY 06/19/20 12/18/24 History Atorvastatin [Lipitor] 80 mg PO DAILY 06/19/20 12/18/24 History Metoprolol Succinate (ER) [Toprol 100 mg PO DAILY 06/19/20 12/18/24 History XL] Omeprazole 20 mg PO DAILY 12/18/24 12/18/24 History Allergies Allergy/AdvReac Type Severity Reaction Status Date / Time JOSE Inhibitors Allergy Swelling Verified 12/18/24 10:22 face & hands & Anaphylaxis Physical Exam Vitals: Vital Signs Temp Pulse Pulse Resp BP BP Pulse Ox 12/19/24 07:00 98.3 F 110 H 16 123/73 93 L 12/19/24 02:00 96 12/19/24 01:02 98.2 F 96 18 157/85 94 L 12/18/24 21:47 162/93 12/18/24 21:46 96 12/18/24 18:55 98.5 F 98 18 174/94 96 12/18/24 14:41 97.8 F 93 15 177/73 12/18/24 13:52 99.4 F 86 18 148/75 96 12/18/24 10:29 88 18 156/91 95 12/18/24 09:36 74 16 166/100 98 Intake and Output 12/18/24 12/19/24 12/19/24 22:59 06:59 14:59 Other: Voiding Method Toilet Toilet # Voids 2 3 Results 12/18/24 08:21 12/18/24 08:21 Cardiac Enzymes 12/18/24 12/18/24 12/18/24 Range/Units 08:21 08:21 11:52 AST 25 (17-59) U/L Troponin I <0.012 <0.012 (0.000-0.034) ng/mL 12/18/24 Range/Units 14:13 AST (17-59) U/L Troponin I <0.012 (0.000-0.034) ng/mL Coagulation 12/18/24 Range/Units 08:21 PT 10.9 (10.0-12.5) sec APTT 23.7 (22.0-30.0) sec Comprehensive Metabolic Panel 12/18/24 Range/Units 08:21 Sodium 138 (137-145) mmol/L Potassium 3.8 (3.5-5.1) mmol/L Chloride 102 (98-107) mmol/L Carbon Dioxide 28 (22-30) mmol/L BUN 9 (9-20) mg/dL Creatinine 0.94 (0.66-1.25) mg/dL Glucose 117 H (74-99) mg/dL Calcium 9.7 (8.4-10.2) mg/dL AST 25 (17-59) U/L ALT 20 (4-49) U/L Alkaline Phosphatase 134 H (38-126) U/L Total Protein 7.1 (6.3-8.2) g/dL Albumin 4.2 (3.5-5.0) g/dL Current Medications Generic Name Dose Route Start Last Admin Trade Name Freq PRN Reason Stop Dose Admin Acetaminophen 650 mg 12/18/24 10:25 Acetaminophen Tab 325 Mg Tab PO Q6HR PRN Mild Pain or Fever > 100.5 Amlodipine Besylate 10 mg 12/18/24 21:30 12/18/24 21:46 Amlodipine 10 Mg Tab PO 10 mg HS BERNADETTE Administration Aspirin 81 mg 12/19/24 09:00 12/19/24 08:16 Aspirin 81 Mg PO 81 mg DAILY BERNADETTE Administration Atorvastatin Calcium 80 mg 12/19/24 09:00 12/19/24 08:16 Atorvastatin 80 Mg Tab PO 80 mg DAILY BERNADETTE Administration Metoprolol Succinate 100 mg 12/19/24 09:00 12/19/24 08:16 Metoprolol Succinate (Er) 100 Mg Tab.Er.24h PO 100 mg DAILY BERNADETTE Administration Naloxone HCl 0.2 mg 12/18/24 10:25 Naloxone 0.4 Mg/Ml 1 Ml Vial IV Q2M PRN Opioid Reversal Pantoprazole Sodium 40 mg 12/19/24 09:00 12/19/24 08:16 Pantoprazole 40 Mg Tablet PO 40 mg DAILY BERNADETTE Administration Intake and Output 12/18/24 12/19/24 12/19/24 22:59 06:59 14:59 Other: Voiding Method Toilet Toilet # Voids 2 3 12/18/24 08:21 12/18/24 08:21
--- NOTE | 2024-12-19 15:35 | CA ---
Transthoracic Echo Report Name: Abhishek Herrera Age: 79 Gender: M : 1945 Exam Date: 12/19/2024 12:34 Exam Location: [facility] Ht (in): 66 Wt (lb): 140 Ordering Physician: Noris Peralta Attending/Referring Phys: [id number], Fabian Tractor Crane Operator Indy Olmstead RDCS Procedure CPT: Indications: chest pain, cad Cardiac Hx: Technical Quality: Fair Contrast 1: Total Dose (mL): Contrast 2: Total Dose (mL): MEASUREMENTS (Male / Female) Normal Values 2D ECHO LV Diastolic Diameter PLAX 3.2 cm 4.2 - 5.9 / 3.9 - 5.3 cm LV Systolic Diameter PLAX 1.9 cm IVS Diastolic Thickness 1.2 cm 0.6 - 1.0 / 0.6 - 0.9 cm LVPW Diastolic Thickness 1.2 cm 0.6 - 1.0 / 0.6 - 0.9 cm LV Relative Wall Thickness 0.8 RV Internal Dim ED PLAX 2.9 cm LVOT Diameter 1.9 cm LA Volume 28.6 cm??? 18 - 58 / 22 - 52 cm??? LA Volume Index 16.6 cm???/m??? 16 - 28 cm???/m??? DOPPLER AI Peak Velocity 455.1 cm/s AI Peak Gradient 82.9 mmHg AI Pressure Half Time 434.0 ms LVOT Peak Velocity 80.1 cm/s LVOT Peak Gradient 2.6 mmHg LVOT Velocity Time Integral 16.0 cm LVOT Stroke Volume 45.2 cm??? LVOT Stroke Volume Index 26.3 ml/m??? LVOT Cardiac Index 2361.4 cm???/min???m??? MV Area PHT 3.6 cm??? Mitral E Point Velocity 45.1 cm/s Mitral A Point Velocity 72.8 cm/s Mitral E to A Ratio 0.6 MV Deceleration Time 210.6 ms MV E' Velocity 5.4 cm/s Mitral E to MV E' Ratio 8.3 FINDINGS Left Ventricle Mildly increased left ventricular wall thickness. Left ventricular cavity size normal. No obvious regional wall motion abnormalities. Left ventricular ejection fraction is estimated at 55 to 60 %. Right Ventricle Normal right ventricular size and function. Right ventricular systolic pressure within normal limits. Right Atrium Normal right atrial size. Left Atrium Normal left atrial size. Interatrial septal aneurysm. Mitral Valve Structurally normal mitral valve. Mild mitral regurgitation.mitral annular calcification. Aortic Valve Trileaflet aortic valve. No aortic stenosis. Mild aortic regurgitation.aortic valve sclerosis. Tricuspid Valve Structurally normal tricuspid valve. Mild tricuspid regurgitation. Pulmonic Valve Structurally normal pulmonic valve. Trace pulmonic regurgitation. Pericardium No pericardial effusion. Aorta Normal size aortic root and proximal ascending aorta. CONCLUSIONS 1. Normal left ventricular size and systolic function 2. Mild mitral, aortic and tricuspid regurgitation 3. No pericardial effusion Previewed by: Dr. Hellen Hector MD (Electronically Signed) Final Date: 19 December 2024 15:34
== END 2024-12-19 16:23 | disposition home or self-care (01) ==
LOC: EC 08:06 → 6NMEDSUR 10:26
PROVIDERS: ADMIT Hospitalist; ATTEND Hospitalist
DX: R07.89 Other chest pain (principal); I25.10 Atherosclerotic heart disease of native coronary artery without angina pectoris; E78.5 Hyperlipidemia, unspecified; I10 Essential (primary) hypertension; Z79.82 Long term (current) use of aspirin; Z79.899 Other long term (current) drug therapy; Z87.891 Personal history of nicotine dependence; Z88.8 Allergy status to other drugs, medicaments and biological substances; Z95.5 Presence of coronary angioplasty implant and graft
CPT/HCPCS: 99285; 36415; 93005; 93306; 85379; 83880; 80053; 83735; 84484; 85025; 85610; 85730; 71046; G0378 ×2